=== PATIENT | male | born 1950 | race Caucasian/White ===

== ENCOUNTER 2017-03-12 16:40 | Inpatient (IN) | payer OTHER ==
[~2017-03-12] VITALS: Ht 165.1 cm; Wt 73.0 kg
--- NOTE | 2017-03-12 16:50 | NUR ---
DR HODGE AT THE BEDSIDE FOR EVAL AND EXAM.
[2017-03-12] MEDS ORDERED: AZTREONAM 2 G in IV NORMAL SALINE 100 ML IV ONE (17:00)
[2017-03-12] MEDS ORDERED: CLINDAMYCIN PHOSPHATE IV 600 MG in IV DEXTROSE 5% 100 ML IV ONE (17:00)
[2017-03-12] MEDS ORDERED: CEFTRIAXONE 1 G in IV DEXTROSE 5% 50 ML IV ONE (17:00)
[2017-03-12] MEDS ORDERED: IV NORMAL SALINE 1000 ML BAG IV ONE (17:00)
[2017-03-12] MEDS ORDERED: HYDR-3326 GT (17:01)
[2017-03-12] MEDS ORDERED: DOCU100C36 GT (17:01)
[2017-03-12] MEDS ORDERED: LEVO500T2 GT (17:01)
[2017-03-12] MEDS ORDERED: LEVE500T9 GT (17:01)
[2017-03-12] MEDS ORDERED: GABA-534 GT (17:01)
[2017-03-12] MEDS ORDERED: ALBU2.5V38 NEB (17:01)
[2017-03-12] MEDS ORDERED: LEVA1.2528 NEB (17:01)
[2017-03-12] MEDS ORDERED: MULT1TAB11 GT (17:01)
[2017-03-12] MEDS ORDERED: ONDA4TAB5 GT (17:01)
[2017-03-12] MEDS ORDERED: ACET-2154 GT (17:01)
[2017-03-12] MEDS ORDERED: OMEP20TA5 GT (17:01)
[2017-03-12] MEDS ORDERED: CALC-20 GT (17:01)
--- NOTE | 2017-03-12 17:20 | NUR ---
DR HODGE PLCED TRIPLE LUMEN CENTRAL LINE IN RT FEMORAL, PT TOLORATED WELL.
[2017-03-12 17:36] LABS: BASOPHILS # (AUTO) 0.2 K/uL (0.0-8.0); BASOPHILS % (AUTO) 1.7 % (0.0-2.0); EOSINOPHILS # (AUTO) 0.3 K/uL (0.0-0.7); EOSINOPHILS % (AUTO) 2.4 % (0.0-7.0); HEMATOCRIT 32.1 % (40-50); HEMOGLOBIN 10.7 G/DL (14.0-18.0); LYMPHOCYTES # (AUTO) 1.1 K/UL (0.8-4.8); LYMPHOCYTES % (AUTO) 10.1 % (20.5-51.5); MEAN CORPUSCULAR HEMOGLOBIN 30.9 UUG (27.0-31.0); MEAN CORPUSCULAR HGB CONC 33 g/dL (32.0-37.0); MEAN CORPUSCULAR VOLUME 93.1 FL (82.0-92.0); MONOCYTES % (AUTO) 9.4 % (0.0-11.0); NEUTROPHILS # (AUTO) 8.1 K/UL (1.8-8.9); NEUTROPHILS % (AUTO) 76.4 % (38.5-71.5); PLATELET COUNT (AUTO) 413 K/UL (150-450); RED BLOOD CELL COUNT(AUTO) 3.45 MIL/UL (4.7-6.1); WHITE BLOOD COUNT (AUTO) 10.7 K/UL (4.0-11.2)
[2017-03-12 17:41] LABS: CARBON DIOXIDE 29 mmol/L (21-32); CHLORIDE 91 mmol/L (98-107); CREATININE 0.5 mg/dL (0.6-1.3); GLUCOSE 92 mg/dL (74-106); POTASSIUM 4.3 mmol/L (3.5-5.1); UREA NITROGEN, BLOOD 13 mg/dL (7-18)
[2017-03-12 17:47] LABS: ALANINE AMINOTRANSFERASE 52 U/L (16-63); ALKALINE PHOSPHATASE 288 U/L (50-136); ASPARTATE AMINOTRANSFERASE 72 U/L (15-37); BILIRUBIN,DIRECT 0.3 mg/dL (0.0-0.2); BILIRUBIN,TOTAL 0.5 mg/dL (0.2-1.0); TOTAL PROTEIN, SERUM 6.6 g/dL (6.4-8.2)
[2017-03-12 17:48] LABS: *BILIRUBIN,URIN NEGATIVE (NEGATIVE); *BLOOD, URINE Trace-intact (NEGATIVE); *CLARITY,URINE SLIGHTLY CLOUDY (CLEAR); *COLOR,URINE YELLOW (YELLOW); *KETONES,URINE NEGATIVE (NEGATIVE); *PROTEIN,URINE 1+ (NEGATIVE); *UROBILINOGEN,URINE 0.2 E.U./dl (NORMAL); LEUKOCYTE ESTERASE ,URINE 1+ (NEGATIVE); NITRITE, URINE NEGATIVE (NEGATIVE); PH,URINE 7.5 (5.0-8.0); UGLUCOSE NEGATIVE (NEGATIVE)
[2017-03-12] MEDS ORDERED: CEFTRIAXONE 1 G VIAL ONE (17:53)
[2017-03-12] MEDS ORDERED: CLINDAMYCIN PHOSPHATE 600 MG/4 ML VIAL ONE (17:53)
[2017-03-12 18:04] LABS: WBC,URINE 50-80 /HPF (0-3)
[2017-03-12 18:05] LABS: BACTERIA,URINE FEW /HPF (NONE SEEN)
--- NOTE | 2017-03-12 18:14 | NUR ---
MRSA COLLECTED AND SENT TO LAB, BELONGING LIST COMPLTED.
--- NOTE | 2017-03-12 18:16 | NUR ---
DR WHTIE PAGED FOR ADMIT, AWAITING CALL BACK.
[2017-03-12] MEDS ORDERED: AZTREONAM 1 G VIAL ONE (18:17)
--- NOTE | 2017-03-12 19:15 | NUR ---
Pt is noted resting in bed as report is received from the off going nurse that , pt came from [facility] with c/o RLL Pneumonia and UTI , history off G-TUBE, HTN, GERD, QUADRIPLEGIA, NEUROFIBROMATOASIS and an open area to coccyx. He is on 02 2liter Nasal Cannula, sue cath in place with IVF and Antibiotic therapy in progress while awaits to give report to 2nd floor as pt is been admitted to Tele under the care off . His care continue with Susinu Rhythm on the Tele monitor.
--- NOTE | 2017-03-12 20:16 | NUR ---
Pt remain alert, responsive and forgetful as report is given to the receiving nurse on the 2nd floor as he is going to Tele room 225. His care continue.
--- NOTE | 2017-03-12 20:33 | NUR ---
Pt is noted off the unit as he is been transfered up to the 2nd floor room 225 as he been admitted and remain stable.
[2017-03-12 20:45] VITALS: BP 136/53
--- NOTE | 2017-03-12 20:45 | NUR ---
RECEIVED FROM ER AN 86 YR OLD MALE WITH ADMITTING DIAGNOSIS PF RIGHT LOWER LOBE PNEUMONIA. aLERT BUT NON-VERBAL, SPEECH GARBLED. OXYGEN AT 2 L PULSE OX 95%, BILATERAL UPPER AND LOWER EXTREMITIES CONTRACTED. CULLEN CATHETER DRAINING YELLOW URINE. RIGHT FEMORAL TRIPLE CENTRAL LINE FLUSHED AND PATENT. 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 ON TELEMETRY PATIENT ON SINUS RHYTHM HR 105 WILL MONITOR PATIENT.
[2017-03-12] MEDS ORDERED: ALBUTEROL SULFATE 2.5 MG/3 ML NEBU NEB PRN (21:30)
[2017-03-12] MEDS ORDERED: ACETAMINOPHEN 325 MG TABLET GT PRN (21:30)
[2017-03-12] MEDS: CEFTRIAXONE 1 G in IV DEXTROSE 5% 50 ML IV SCH (21:30)
[2017-03-12] MEDS ORDERED: HYDROCODONE/APAP 5-325MG TABLET GT PRN (21:30)
[2017-03-12] MEDS ORDERED: ONDANSETRON HCL 4 MG TABLET GT PRN (21:30)
[2017-03-12] MEDS: IV NS 1000 ML 1,000 ML IV PRN (22:20)
[2017-03-13] VITALS: BP 139/60
[2017-03-13] MEDS ORDERED: ACETAMINOPHEN 650 MG/20.3 ML LIQUID UDC ONE (02:57)
[2017-03-13] MEDS: ACETAMINOPHEN 650 MG/20.3 ML LIQUID UDC GT PRN ×2 (03:10→12:55)
[2017-03-13 04:00] VITALS: BP 142/85
--- NOTE | 2017-03-13 06:05 | NUR ---
PATIENT HAD LARGE SOFT STOOL,KEEP CLEAN AND DRY, REPOSITIONING Q 2H,HOB ELEVATED,ASPIRATION AND SEIZURE PRECAUTIONS.PATIENT NOT IN ANY DISTRESS.
--- NOTE | 2017-03-13 06:30 | NUR ---
NUTREN TUBEFEEDINGS STARTED AT 0630 VIA GTUBE AT 50CC/HR. HOB UP AT ALL TIMES. TOLERATED TUBE FEEDINGS WELL.
[2017-03-13 06:42] LABS: BASOPHILS % (AUTO) 0.3 % (0.0-2.0); EOSINOPHILS # (AUTO) 0.1 K/uL (0.0-0.7); EOSINOPHILS % (AUTO) 1.4 % (0.0-7.0); HEMATOCRIT 31.6 % (40-50); HEMOGLOBIN 10.7 G/DL (14.0-18.0); LYMPHOCYTES # (AUTO) 0.7 K/UL (0.8-4.8); LYMPHOCYTES % (AUTO) 7.2 % (20.5-51.5); MEAN CORPUSCULAR HEMOGLOBIN 31.6 UUG (27.0-31.0); MEAN CORPUSCULAR HGB CONC 34 g/dL (32.0-37.0); MEAN CORPUSCULAR VOLUME 93.1 FL (82.0-92.0); MONOCYTES # (AUTO) 0.7 K/UL (0.1-1.30); NEUTROPHILS # (AUTO) 8.9 K/UL (1.8-8.9); NEUTROPHILS % (AUTO) 84.1 % (38.5-71.5); PLATELET COUNT (AUTO) 400 K/UL (150-450); RED BLOOD CELL COUNT(AUTO) 3.39 MIL/UL (4.7-6.1); WHITE BLOOD COUNT (AUTO) 10.4 K/UL (4.0-11.2)
[2017-03-13 06:45] LABS: IRON, SERUM 17 ug/dL (50-175)
[2017-03-13 06:51] LABS: ALANINE AMINOTRANSFERASE 39 U/L (16-63); ALKALINE PHOSPHATASE 227 U/L (50-136); ASPARTATE AMINOTRANSFERASE 33 U/L (15-37); BILIRUBIN,TOTAL 0.4 mg/dL (0.2-1.0); CARBON DIOXIDE 26 mmol/L (21-32); CHLORIDE 97 mmol/L (98-107); CHOLESTEROL 74 mg/dL (<200); CREATININE 0.5 mg/dL (0.6-1.3); GLUCOSE 112 mg/dL (74-106); HDL CHOLESTEROL 21 mg/dL (40-60); MAGNESIUM 2.2 mg/dL (1.8-2.4); PHOSPHOROUS 3.8 mg/dL (2.5-4.9); POTASSIUM 4.4 mmol/L (3.5-5.1); TOTAL PROTEIN, SERUM 6.6 g/dL (6.4-8.2); TRIGLYCERIDES 49 MG/DL (30-150); UREA NITROGEN, BLOOD 10 mg/dL (7-18)
[2017-03-13 07:06] LABS: THYROID STIMULATING HORMONE 0.326 mIU/mL (0.358-3.740)
[2017-03-13] MEDS ORDERED: [UNRECOGNIZED DRUG - OTHER] GT SCH (09:00)
[2017-03-13] MEDS ORDERED: CALCIUM CARBONATE GT SCH (09:00)
[2017-03-13] MEDS ORDERED: Medication Not On Formulary EA (Multivitamins W-Minerals (Multivitamin With Minerals) 1 GT SCH (09:00)
[2017-03-13] MEDS ORDERED: VITAMIN D3 GT SCH (09:00)
[2017-03-13] MEDS: CALCIUM CARB/VITAMIN D 250MG-125UNITS TABLET GT SCH (10:07)
[2017-03-13] MEDS: DOCUSATE SODIUM 100 MG CAPSULE PO SCH ×2 (10:07→16:52)
[2017-03-13] MEDS: GABAPENTIN 300 MG CAPSULE GT SCH ×3 (10:07→16:53)
[2017-03-13] MEDS: LEVETIRACETAM 500 MG TABLET GT SCH ×3 (10:07→16:52)
[2017-03-13] MEDS: PANTOPRAZOLE ORAL SUSPENSION 40 MG SUSPDR.PKT GT SCH (10:07)
[2017-03-13] MEDS: IV NS 1000 ML 1,000 ML IV PRN (10:36)
[2017-03-13 12:00] VITALS: BP 137/66
[2017-03-13] MEDS: MULTIVITS W-FE,OTHER MIN 15 ML UDC GT SCH (12:56)
--- NOTE | 2017-03-13 15:18 | NUR ---
WOUND CARE CONSULT: PT PRESENTS WITH STAGE 2 ULCERS TO SACRUM AND RT BUTTOCK, PRESENT ON ADMISSION. SCARRING NOTED TO LEFT BUTTOCK. PT HAS VERY LARGE SKIN TAG TO SACRAL AREA AND MULTIPLE SKIN TAGS TO BODY. SCARRING NOTED TO FEET ALSO. FIRST STEP MATTRESS ORDERED. ALL SKIN PROTECTION AND WOUND RECOMMENDATIONS DISCUSSED WITH NURSING STAFF. WILL SEE PRN. SERNA IN AGREEMENT WITH PLAN OF CARE. Addendum: 03/13/17 at 1520 by DANELLE OSEGUERA RN Amended: Links added.
[2017-03-13 15:29] VITALS: BP 103/60
--- NOTE | 2017-03-13 19:11 | NUR ---
PT. RESTING IN BED . REPOSITIONED Q 2 HRS. WOUND CONSULT AT BS THIS AFTERNOON. WOUND TX PERFORMED WITH HYDROGEL AND FOAM DRESSING. TUBE FEEDING AT 50 ML/HR AND TOLERATING WELL. NO ACUTE DISTRESS. SPOKE WITH SISTER PER PHONE TWICE THIS SHIFT REGARDING CARE PLAN.
--- NOTE | 2017-03-13 19:30 | NUR ---
RECEIVED IN BED, NO SOB NO CHEST PAIN, HOB, TOLERATE GTF FEEDING, NO N/V NO DIARRHEA, NO REDISUAL, R FEMORAL PICC LINE INTACT, CONT TO MONITOR.
[2017-03-13 20:00] VITALS: BP 126/70
[2017-03-13] MEDS: CEFTRIAXONE 1 G in IV DEXTROSE 5% 50 ML IV SCH (22:02)
[2017-03-14] MEDS: IV NS 1000 ML 1,000 ML IV PRN (03:09)
[2017-03-14 04:00] VITALS: BP 138/69
--- NOTE | 2017-03-14 04:00 | NUR ---
PATIENT SLEPT MOST OF THE NIGHT WITH EPISODE OF MOANING, GIVEN PAIN MEDS WITH HELP AFTER ONE HOUR, NO SOB NO CHEST PAIN, CULLEN CATH PATENT WITH YELLOW COLOR URINE IN MODERATE AMOUNT, TURN AND REPOSITION.
[2017-03-14] MEDS: PANTOPRAZOLE ORAL SUSPENSION 40 MG SUSPDR.PKT GT SCH (05:32)
[2017-03-14] MEDS: MULTIVITS W-FE,OTHER MIN 15 ML UDC GT SCH (09:00)
[2017-03-14] MEDS: CALCIUM CARB/VITAMIN D 250MG-125UNITS TABLET GT SCH (10:48)
[2017-03-14] MEDS: LEVETIRACETAM 500 MG TABLET GT SCH ×3 (10:48→18:42)
[2017-03-14] MEDS: GABAPENTIN 300 MG CAPSULE GT SCH ×3 (10:49→18:42)
[2017-03-14] MEDS: DOCUSATE SODIUM 100 MG CAPSULE PO SCH ×2 (10:49→18:43)
[2017-03-14 12:03] VITALS: BP 141/76
--- NOTE | 2017-03-14 15:31 | NUR ---
DAILY NOTE PLACED ON AIR MATTRESS ORDERED. JOAN GT FEEDS MIN RESIDUALS NOTED
[2017-03-14 16:39] VITALS: BP 145/70
--- NOTE | 2017-03-14 19:30 | NUR ---
RECEIVED PATIENT IN BED, HOB ELEVATED, TOLERATE GTF, NO NAUSEA NO VOMITTING, NO RESIDUAL NOTED, R FEMORAL CATH PATENT, TURN AND REPOSITION, EVERY TWO HOURS, CULLEN CATH PATENT, DRAINING WITH YELLOW URINE, REMAIN ON CONTACT ISOLATION MRSA NARES, CONT TO MONITOR.
[2017-03-14 21:00] VITALS: BP 127/73
[2017-03-14] MEDS: CEFTRIAXONE 1 G in IV DEXTROSE 5% 50 ML IV SCH (23:02)
[2017-03-15] MEDS ORDERED: MUPIROCIN 2% OINT 22 GM TUBE ONE (00:59)
[2017-03-15] MEDS: MUPIROCIN 2% OINT 22 GM TUBE NS SCH ×3 (02:45→20:40)
[2017-03-15 05:02] VITALS: BP 126/80
[2017-03-15] MEDS: PANTOPRAZOLE ORAL SUSPENSION 40 MG SUSPDR.PKT GT SCH (06:14)
--- NOTE | 2017-03-15 06:52 | NUR ---
PATIENT SLEEP ON AND OFF, NO SOB NO CHEST PAIN, NO COUGHING, NO CONGESTION NOTED, HOB ELEVATED, TOLERATE GTF NO RESIDUAL NOTED. HAS 2 LARGE BM, STOOL WAS SENT, L FEMORAL LINES PATENT, CONT TO MONITOR.
[2017-03-15 06:59] LABS: BASOPHILS % (AUTO) 0.2 % (0.0-2.0); EOSINOPHILS % (AUTO) 0.2 % (0.0-7.0); HEMATOCRIT 30.8 % (36.7-47.1); HEMOGLOBIN 10.9 g/dL (12.5-16.3); LYMPHOCYTES # (AUTO) 0.7 K/uL (20.0-40.0); LYMPHOCYTES % (AUTO) 5.5 % (20.5-51.5); MEAN CORPUSCULAR HEMOGLOBIN 32.1 uug (23.8-33.4); MEAN CORPUSCULAR HGB CONC 36 g/dL (32.5-36.3); MEAN CORPUSCULAR VOLUME 90.5 fL (73.0-96.2); MONOCYTES % (AUTO) 7.9 % (0.0-11.0); NEUTROPHILS # (AUTO) 10.4 K/uL (1.8-8.9); NEUTROPHILS % (AUTO) 86.2 % (38.5-71.5); PLATELET COUNT (AUTO) 466 K/uL (152-348); RED BLOOD CELL COUNT(AUTO) 3.41 MIL/uL (4.06-5.63); WHITE BLOOD COUNT (AUTO) 12.1 K/uL (3.6-10.2)
[2017-03-15 07:02] LABS: ALANINE AMINOTRANSFERASE 25 U/L (16-63); ALKALINE PHOSPHATASE 175 U/L (50-136); ASPARTATE AMINOTRANSFERASE 15 U/L (15-37); BILIRUBIN,TOTAL 0.3 mg/dL (0.2-1.0); CARBON DIOXIDE 27 mmol/L (21-32); CHLORIDE 91 mmol/L (98-107); CREATININE 0.5 mg/dL (0.6-1.3); GLUCOSE 135 mg/dL (74-106); MAGNESIUM 1.8 mg/dL (1.8-2.4); PHOSPHOROUS 3.3 mg/dL (2.5-4.9); POTASSIUM 4.2 mmol/L (3.5-5.1); TOTAL PROTEIN, SERUM 7.3 g/dL (6.4-8.2); UREA NITROGEN, BLOOD 11 mg/dL (7-18)
[2017-03-15] MEDS: LEVETIRACETAM 500 MG TABLET GT SCH ×3 (09:49→18:16)
[2017-03-15] MEDS: CALCIUM CARB/VITAMIN D 250MG-125UNITS TABLET GT SCH (09:49)
[2017-03-15] MEDS: GABAPENTIN 300 MG CAPSULE GT SCH ×3 (09:49→18:16)
[2017-03-15] MEDS: MULTIVITS W-FE,OTHER MIN 15 ML UDC GT SCH (09:49)
[2017-03-15] MEDS: DOCUSATE SODIUM 100 MG CAPSULE PO SCH ×2 (09:49→18:16)
[2017-03-15 11:14] VITALS: BP 156/83
[2017-03-15] MEDS: NUTREN 1.5 1000ML BAG GT PRN (12:41)
[2017-03-15 15:07] VITALS: BP 158/77
[2017-03-15] MEDS: IV NS 1000 ML 1,000 ML IV PRN (18:01)
--- NOTE | 2017-03-15 19:30 | NUR ---
RECEIVED PATIENT HOB ELEVATED, GTF TOLERATE WELL NO RESIDUAL NOTED, NO SOB NO CHEST PAIN NOTED, TURN AND REPOSITION EVERY TWO HOURS, CULLEN CATH PATENT, DRAINING WITH YELLOW COLOR URINE IN MODERATE AMOUNT. CONT TO MONITOR.
[2017-03-15 20:00] VITALS: BP 124/72
[2017-03-15] MEDS: ACETAMINOPHEN 650 MG/20.3 ML LIQUID UDC GT PRN (20:39)
[2017-03-15] MEDS: CEFTRIAXONE 1 G in IV DEXTROSE 5% 50 ML IV SCH (22:38)
--- NOTE | 2017-03-16 00:30 | NUR ---
PATIENT AWAKE, HOB ELEVATED, NO EPISODES OF VOMITING NOTED, NO RESIDUAL NOTED, UCLLEN CATH WAS CHANGED, TOLERATE WELL, SEND URINE SPECIMEN, PICC LINE DRESSING WAS CHANGED ALSO. RENDER ORAL CARE, TX CONT ON COCCYX, TURN AND REPOSITION, NO SOB NO CHEST PAIN NOTED, KEPT COMFORTABLE.
[2017-03-16 02:05] LABS: *BILIRUBIN,URIN NEGATIVE (NEGATIVE); *BLOOD, URINE 3+ (NEGATIVE); *CLARITY,URINE CLEAR (CLEAR); *COLOR,URINE YELLOW (YELLOW); *KETONES,URINE NEGATIVE (NEGATIVE); *PROTEIN,URINE NEGATIVE (NEGATIVE); *UROBILINOGEN,URINE 0.2 E.U./dl (NORMAL); LEUKOCYTE ESTERASE ,URINE 1+ (NEGATIVE); NITRITE, URINE NEGATIVE (NEGATIVE); UGLUCOSE NEGATIVE (NEGATIVE)
[2017-03-16 02:22] LABS: BACTERIA,URINE NONE SEEN /HPF (NONE SEEN); SQUAMOUS EPITHELIAL CELL,UR NONE SEEN /HPF (NONE SEEN)
[2017-03-16] MEDS: PANTOPRAZOLE ORAL SUSPENSION 40 MG SUSPDR.PKT GT SCH (06:07)
[2017-03-16 06:32] VITALS: BP 106/57
--- NOTE | 2017-03-16 07:02 | NUR ---
REMAIN IN CONTACT ISOLATION MRSA NARES, GOOD HANDWASHING OBSERVED, CULLEN CATH PATENT, DRAINING WITH YELLOW COLOR URINE IN MODERATE AMOUNT, NO EPISODE OF VOMITING NOTED, PICC LINE DRESSING INTACT, GTF TOLERATE WELL NO NV NO DIARRHEA NOTED, AFEBRILE CONT TO MONITOR, ENDORSE TO NEXT SHIFT.
[2017-03-16] MEDS: MULTIVITS W-FE,OTHER MIN 15 ML UDC GT SCH ×2 (10:26→22:20)
[2017-03-16] MEDS: GABAPENTIN 300 MG CAPSULE GT SCH ×3 (10:27→18:09)
[2017-03-16] MEDS: DOCUSATE SODIUM 100 MG CAPSULE PO SCH ×2 (10:27→18:09)
[2017-03-16] MEDS: LEVETIRACETAM 500 MG TABLET GT SCH ×3 (10:27→18:09)
[2017-03-16] MEDS: CALCIUM CARB/VITAMIN D 250MG-125UNITS TABLET GT SCH (10:27)
[2017-03-16] MEDS: MUPIROCIN 2% OINT 22 GM TUBE NS SCH ×2 (10:27→22:19)
[2017-03-16 11:07] VITALS: BP 130/68
[2017-03-16 15:13] VITALS: BP 136/78
--- NOTE | 2017-03-16 18:42 | NUR ---
18:42 PT REMAINS IN BED Q 2 HOURLY CONTINUED. NO BM. TF IN PROGRESS. SKIN CARE CONTINUES AND CULLEN IN PLACE. WILL CONTINUE TO MONITOR.
--- NOTE | 2017-03-16 19:30 | NUR ---
Received patient sleeping in bed, no s/s of distress. Call light within reach. Will continue to monitor.
[2017-03-16 20:12] VITALS: BP 130/65
[2017-03-16] MEDS: CEFTRIAXONE 1 G in IV DEXTROSE 5% 50 ML IV SCH (22:19)
[2017-03-17] MEDS: IV NS 1000 ML 1,000 ML IV PRN (00:26)
[2017-03-17 06:53] VITALS: BP 121/56
[2017-03-17] MEDS: PANTOPRAZOLE ORAL SUSPENSION 40 MG SUSPDR.PKT GT SCH (07:05)
[2017-03-17 07:19] LABS: BASOPHILS % (AUTO) 0.2 % (0.0-2.0); EOSINOPHILS # (AUTO) 0.2 K/uL (0.0-0.7); EOSINOPHILS % (AUTO) 1.4 % (0.0-7.0); HEMATOCRIT 32.8 % (40-50); HEMOGLOBIN 11.4 G/DL (14.0-18.0); LYMPHOCYTES # (AUTO) 0.9 K/UL (0.8-4.8); MEAN CORPUSCULAR HEMOGLOBIN 31.9 UUG (27.0-31.0); MEAN CORPUSCULAR HGB CONC 35 g/dL (32.0-37.0); MEAN CORPUSCULAR VOLUME 92.2 FL (82.0-92.0); MONOCYTES # (AUTO) 0.6 K/UL (0.1-1.30); MONOCYTES % (AUTO) 5.8 % (0.0-11.0); NEUTROPHILS # (AUTO) 9.2 K/UL (1.8-8.9); NEUTROPHILS % (AUTO) 84.6 % (38.5-71.5); PLATELET COUNT (AUTO) 506 K/UL (150-450); RED BLOOD CELL COUNT(AUTO) 3.56 MIL/UL (4.7-6.1); WHITE BLOOD COUNT (AUTO) 10.9 K/UL (4.0-11.2)
--- NOTE | 2017-03-17 07:30 | NUR ---
RECEIVED PATIENT IN BED, HOB ELEVATED, TOLERATE GTF, NO NAUSEA NO VOMITING, NO RESIDUAL NOTED, R FEMORAL CATH PATENT, TURN AND REPOSITION, EVERY TWO HOURS, CULLEN CATH PATENT, DRAINING WITH YELLOW URINE, REMAIN ON CONTACT ISOLATION MRSA NARES,
--- NOTE | 2017-03-17 07:44 | NUR ---
Patient asleep with no s/s of acute distress. No complaints of pain at this time. Frequent checks done. Call light kept within reach. Kept clean and comfortable. Due meds given. Needs attended. Endorsed accordingly.
[2017-03-17] MEDS: NUTREN 1.5 1000ML BAG GT PRN (07:51)
[2017-03-17] MEDS: DOCUSATE SODIUM 100 MG CAPSULE PO SCH ×2 (08:00→16:24)
[2017-03-17] MEDS: GABAPENTIN 300 MG CAPSULE GT SCH ×3 (08:01→16:24)
[2017-03-17] MEDS: MUPIROCIN 2% OINT 22 GM TUBE NS SCH (08:01)
[2017-03-17] MEDS: LEVETIRACETAM 500 MG TABLET GT SCH ×3 (08:01→16:24)
[2017-03-17] MEDS: CALCIUM CARB/VITAMIN D 250MG-125UNITS TABLET GT SCH (08:01)
[2017-03-17] MEDS ORDERED: SODIUM CHLORIDE 1,000 MG TABLET PO SCH (09:00)
[2017-03-17 09:28] LABS: CARBON DIOXIDE 24 mmol/L (21-32); CHLORIDE 96 mmol/L (98-107); CREATININE 0.6 mg/dL (0.6-1.3); GLUCOSE 140 mg/dL (74-106); MAGNESIUM 2.1 mg/dL (1.8-2.4); PHOSPHOROUS 3.1 mg/dL (2.5-4.9); POTASSIUM 4.4 mmol/L (3.5-5.1); UREA NITROGEN, BLOOD 15 mg/dL (7-18)
[2017-03-17] MEDS ORDERED: ACIDOPHILUS/BULGARICUS CHEW TAB GT SCH (09:30)
[2017-03-17 12:05] VITALS: BP 115/73
[2017-03-17 13:11] LABS: LYMPHOCYTES % (MANUAL) 8 % (20-40); MONOCYTES % (MANUAL) 7 % (2-10); NEUTROPHILS % (MANUAL) 85 % (42-75)
[2017-03-17] MEDS ORDERED: MUPI22OI2 NS (14:59)
[2017-03-17] MEDS ORDERED: SODI100010 PO (14:59)
[2017-03-17] MEDS ORDERED: LEVO500T2 GT (14:59)
[2017-03-17 16:05] VITALS: BP 141/65
--- NOTE | 2017-03-17 17:00 | NUR ---
PATIENT SLEPT MOST OF THE NIGHT WITH EPISODE OF MOANING, NO SOB NO CHEST PAIN, CULLEN CATH PATENT WITH YELLOW COLOR URINE IN MODERATE AMOUNT, TURN AND REPOSITION.
--- NOTE | 2017-03-17 18:04 | NUR ---
D/C ORDERS RECEIVED NOTED AND CARRIED OUT.D/C PICC LINE PER MD ORDERS.RN REPORT GIVEN TO THE RN OVER PENITENTI[facility],PT LEFT THE FACILITY VIA AMBULANCES IN STABLE CONDITION.
== END 2017-03-17 17:00 | DRG 720 ==
LOC: ER 16:40 → TELE 20:28 → MED 03-13 13:37
PROVIDERS: ADMIT Internal Medicine; ATTEND Internal Medicine
DX: A41.9 Sepsis, unspecified organism (principal); J69.0 Pneumonitis due to inhalation of food and vomit; G93.40 Encephalopathy, unspecified; L89.153 Pressure ulcer of sacral region, stage 3; E22.2 Syndrome of inappropriate secretion of antidiuretic hormone; D68.59 Other primary thrombophilia; F03.90 Unspecified dementia, unspecified severity, without behavioral disturbance, psychotic disturbance, mood disturbance, and anxiety; Q85.00 Neurofibromatosis, unspecified; R13.10 Dysphagia, unspecified; N39.0 Urinary tract infection, site not specified; K21.9 Gastro-esophageal reflux disease without esophagitis; M81.0 Age-related osteoporosis without current pathological fracture; G40.909 Epilepsy, unspecified, not intractable, without status epilepticus; Z93.1 Gastrostomy status; I10 Essential (primary) hypertension; Z22.322 Carrier or suspected carrier of Methicillin resistant Staphylococcus aureus; Z79.899 Other long term (current) drug therapy
CPT/HCPCS: 36415; 70030-TC; 71010; 83550; 83605; 83735; 84100; 84443; 85025; 85730; 87040; 87086; 93005; A4663; C1751; J0696; J3490; J7030; J7050; J7060

== ENCOUNTER 2017-07-19 16:11 | Inpatient (IN) | payer OTHER ==
[~2017-07-19] VITALS: Ht 165.1 cm; Wt 73.0 kg
[~2017-07-19 16:11] MED LIST: ACET-2154 GT; ALBU2.5V38 NEB; CALC-20 GT; DOCU100C36 GT; GABA-534 GT; HYDR-3326 GT; LEVA1.2528 NEB; LEVE500T9 GT; LEVO500T2 GT; MULT1TAB11 GT; MUPI22OI2 NS; OMEP20TA5 GT; ONDA4TAB5 GT; SODI100010 PO
[2017-07-19] MEDS ORDERED: IV NORMAL SALINE 1000 ML BAG IV ONE (16:45)
[2017-07-19 17:12] LABS: BASOPHILS # (AUTO) 0.1 K/uL (0.0-8.0); BASOPHILS % (AUTO) 0.5 % (0.0-2.0); EOSINOPHILS % (AUTO) 0.3 % (0.0-7.0); HEMATOCRIT 29.9 % (36.7-47.1); HEMOGLOBIN 10.2 g/dL (12.5-16.3); LYMPHOCYTES % (AUTO) 6.9 % (20.5-51.5); MEAN CORPUSCULAR HEMOGLOBIN 31.1 uug (23.8-33.4); MEAN CORPUSCULAR HGB CONC 34 g/dL (32.5-36.3); MEAN CORPUSCULAR VOLUME 91.6 fL (73.0-96.2); MONOCYTES # (AUTO) 1.7 K/uL (2.0-10.0); MONOCYTES % (AUTO) 12.4 % (0.0-11.0); NEUTROPHILS # (AUTO) 11.2 K/uL (1.8-8.9); NEUTROPHILS % (AUTO) 79.9 % (38.5-71.5); PLATELET COUNT (AUTO) 472 K/uL (152-348); RED BLOOD CELL COUNT(AUTO) 3.27 MIL/uL (4.06-5.63)
[2017-07-19 17:15] LABS: CARBON DIOXIDE 26 mmol/L (21-32); CHLORIDE 90 mmol/L (98-107); CREATININE 0.6 mg/dL (0.6-1.3); GLUCOSE 126 mg/dL (74-106); POTASSIUM 4.1 mmol/L (3.5-5.1); UREA NITROGEN, BLOOD 20 mg/dL (7-18)
[2017-07-19 17:20] LABS: ALANINE AMINOTRANSFERASE 33 U/L (16-63); ALKALINE PHOSPHATASE 181 U/L (50-136); ASPARTATE AMINOTRANSFERASE 24 U/L (15-37); BILIRUBIN,DIRECT 0.3 mg/dL (0.0-0.2); BILIRUBIN,TOTAL 0.5 mg/dL (0.2-1.0); TOTAL PROTEIN, SERUM 6.9 g/dL (6.4-8.2)
[2017-07-19] MEDS ORDERED: CEFTRIAXONE 1 G in IV DEXTROSE 5% 50 ML IV ONE (18:00)
[2017-07-19 18:18] LABS: *BILIRUBIN,URIN NEGATIVE (NEGATIVE); *BLOOD, URINE 1+ (NEGATIVE); *CLARITY,URINE CLOUDY (CLEAR); *COLOR,URINE YELLOW (YELLOW); *KETONES,URINE NEGATIVE (NEGATIVE); *PROTEIN,URINE 2+ (NEGATIVE); LEUKOCYTE ESTERASE ,URINE 3+ (NEGATIVE); NITRITE, URINE NEGATIVE (NEGATIVE); UGLUCOSE NEGATIVE (NEGATIVE)
[2017-07-19] MEDS ORDERED: CEFTRIAXONE 1 G VIAL ONE (18:18)
[2017-07-19 18:19] LABS: BACTERIA,URINE MANY /HPF (NONE SEEN); WBC,URINE TNTC /HPF (0-3)
--- NOTE | 2017-07-19 19:16 | NUR ---
HANDS OFF REPORT GIVEN TO KAMERON HINTON.
--- NOTE | 2017-07-19 19:30 | NUR ---
report received from Cherelle HINTON. introduced self to pt. pt is nonverbal, responds to tactile stimuli. pt in no acute distress. respirations and even and unlabored. no sob noted, and no respiratory distress noted. bed in lowest position.
--- NOTE | 2017-07-19 19:53 | NUR ---
report given to inpt nurse Epi RN in tele. pt vs wnl prior to transport. pt in no acute distress.
[2017-07-19 20:15] VITALS: BP 105/52
[2017-07-19] MEDS ORDERED: ACETAMINOPHEN 325 MG TABLET GT PRN (20:15)
[2017-07-19] MEDS ORDERED: ONDANSETRON HCL 4 MG TABLET GT PRN (20:15)
[2017-07-19] MEDS: DOCUSATE SODIUM 100 MG/10 ML LIQUID UDC GT SCH (21:43)
[2017-07-19] MEDS: IV NS 1000 ML 1,000 ML IV PRN (21:43)
[2017-07-19] MEDS: ENOXAPARIN SODIUM 40 MG/0.4 ML DISP.SYRIN SQ SCH (21:44)
[2017-07-19] MEDS: Z GUARD REMEDY PASTE 57 GM TUBE TOP PRN (21:58)
[2017-07-19] MEDS: ACETAMINOPHEN 650 MG/20.3 ML LIQUID UDC GT PRN (21:59)
--- NOTE | 2017-07-19 23:30 | NUR ---
In from ER via [facility], 66 y/o male patient admitted initially to Telemetry Dx. UTI, then transferred to [facility] per MD order. Patient awake but confused, moaning on & off. O2 2L/NC in use, no SOB w/ vital signs stable. Contracted extremities noted w/ clamped G-tube intact. Left hand IV line patent. Admission assessment initiated. Sacral & buttocks wound wound noted, see pictures in chart. Wound consult was ordered. IVF NS at 75 ml/hr started as ordered. Will continue to monitor.
[2017-07-20] MEDS: HYDROCODONE/APAP 5-325MG TABLET GT PRN ×4 (00:16→22:41)
[2017-07-20 04:00] VITALS: BP 134/68
[2017-07-20 06:55] LABS: BASOPHILS # (AUTO) 0.1 K/uL (0.0-8.0); BASOPHILS % (AUTO) 0.7 % (0.0-2.0); EOSINOPHILS # (AUTO) 0.1 K/uL (0.0-0.7); EOSINOPHILS % (AUTO) 0.7 % (0.0-7.0); HEMATOCRIT 30.1 % (36.7-47.1); HEMOGLOBIN 10.2 g/dL (12.5-16.3); LYMPHOCYTES % (AUTO) 8.5 % (20.5-51.5); MEAN CORPUSCULAR HEMOGLOBIN 31.2 uug (23.8-33.4); MEAN CORPUSCULAR HGB CONC 34 g/dL (32.5-36.3); MONOCYTES # (AUTO) 1.2 K/uL (2.0-10.0); MONOCYTES % (AUTO) 10.5 % (0.0-11.0); NEUTROPHILS % (AUTO) 79.6 % (38.5-71.5); PLATELET COUNT (AUTO) 498 K/uL (152-348); RED BLOOD CELL COUNT(AUTO) 3.27 MIL/uL (4.06-5.63); WHITE BLOOD COUNT (AUTO) 11.3 K/uL (3.6-10.2)
--- NOTE | 2017-07-20 06:56 | NUR ---
Medicated for pain PRN, kept patient comfortable. Incontinence care provided. G-tube remains clamped. Patient was on Nutren 1.5 marie continuos feeding at 50 ml/hr from previous record. Called Dr. Bansal for clarification of feeding order. Patient resting comfortably at this time.
--- NOTE | 2017-07-20 07:00 | NUR ---
received report from cook night nurse, patient in bed asleep, no evidence of distress noted at this time. IV has some resistance with flushing, will continue to monitor. bed in low position, side rials up x2, bed in low position.
[2017-07-20 07:14] LABS: CARBON DIOXIDE 23 mmol/L (21-32); CHLORIDE 94 mmol/L (98-107); CHOLESTEROL 59 mg/dL (<200); CREATININE 0.6 mg/dL (0.6-1.3); GLUCOSE 101 mg/dL (74-106); HDL CHOLESTEROL 15 mg/dL (40-60); MAGNESIUM 2.1 mg/dL (1.8-2.4); PHOSPHOROUS 3.7 mg/dL (2.5-4.9); POTASSIUM 4.3 mmol/L (3.5-5.1); TRIGLYCERIDES 52 MG/DL (30-150); UREA NITROGEN, BLOOD 19 mg/dL (7-18)
[2017-07-20] MEDS ORDERED: NUTREN 1.5 1000ML BAG GT PRN (07:15)
[2017-07-20] MEDS ORDERED: LEVETIRACETAM 500 MG TABLET GT SCH (09:00)
[2017-07-20] MEDS ORDERED: DOCUSATE SODIUM 100 MG CAPSULE PO SCH (09:00)
[2017-07-20] MEDS: PANTOPRAZOLE SODIUM 40 MG VIAL IV SCH (09:01)
[2017-07-20] MEDS: LEVETIRACETAM 500 MG/5 ML LIQUID UDC GT SCH ×3 (09:01→17:48)
[2017-07-20] MEDS: DOCUSATE SODIUM 100 MG/10 ML LIQUID UDC GT SCH ×2 (09:01→20:23)
[2017-07-20] MEDS: GABAPENTIN 300 MG CAPSULE GT SCH ×3 (09:01→17:48)
[2017-07-20 11:46] VITALS: BP 130/74
[2017-07-20] MEDS: NUTREN 1.5 1000ML BAG GT PRN (12:57)
--- NOTE | 2017-07-20 14:00 | NUR ---
Patient seen by MATH AND SCIENCES DEPARTMENT CHAIR, wound care orders for buttocks entered, and xray for foot ordered, suspected cellulitis.
[2017-07-20 15:57] VITALS: BP 143/85
[2017-07-20] MEDS: CEFTRIAXONE 1 G in IV DEXTROSE 5% 50 ML IV SCH (17:49)
--- NOTE | 2017-07-20 18:55 | NUR ---
Patient has been cooperative with care, all needs met. New IV started on right forearm, patent and intact. no evidence of distress noted at this time, bed in low position, side rails up x2.
[2017-07-20] MEDS: ACETAMINOPHEN 650 MG/20.3 ML LIQUID UDC GT PRN (20:23)
[2017-07-20] MEDS: ENOXAPARIN SODIUM 40 MG/0.4 ML DISP.SYRIN SQ SCH (20:25)
[2017-07-20] MEDS: Z GUARD REMEDY PASTE 57 GM TUBE TOP PRN (20:34)
[2017-07-20 20:47] VITALS: BP 116/67
--- NOTE | 2017-07-20 21:00 | NUR ---
Patient awake resting comfortably but sensitive to touch. 1st step airloss mattress in use. G-tube in place Nutren 1.5 continuos feeding tolerating well. No residual noted. IVF infusing well, right forearm IV site patent no signs of infiltrations. Vital signs WNL. Turned & repositioned. Kept comfortable.
[2017-07-20] MEDS: IV NS 1000 ML 1,000 ML IV PRN (21:02)
--- NOTE | 2017-07-20 23:52 | NUR ---
Moaning on & off w/ frequent facial grimace noted. Sage 1 tab adm via GT, effective result noted. Quiet at this time, no signs of distress.
[2017-07-21 04:00] VITALS: BP 100/63
[2017-07-21] MEDS: LEVETIRACETAM 500 MG/5 ML LIQUID UDC GT SCH ×3 (08:49→18:13)
[2017-07-21] MEDS: DOCUSATE SODIUM 100 MG/10 ML LIQUID UDC GT SCH ×2 (08:49→20:31)
[2017-07-21] MEDS: PANTOPRAZOLE SODIUM 40 MG VIAL IV SCH (08:49)
[2017-07-21] MEDS: GABAPENTIN 300 MG CAPSULE GT SCH ×3 (08:49→18:13)
[2017-07-21] MEDS: ACETAMINOPHEN 650 MG/20.3 ML LIQUID UDC GT PRN ×2 (08:49→23:29)
[2017-07-21] MEDS: NUTREN 1.5 1000ML BAG GT PRN (08:50)
[2017-07-21] MEDS: IV NS 1000 ML 1,000 ML IV PRN (09:16)
[2017-07-21 11:41] VITALS: BP 112/61
--- NOTE | 2017-07-21 13:45 | NUR ---
Wound treatment done on buttocks as ordered. Patient tolerated procedure well.
--- NOTE | 2017-07-21 14:00 | NUR ---
Patient visited by brother/family. Patient seen by garland maker.
--- NOTE | 2017-07-21 15:00 | NUR ---
Microbiology report received, patient positive for MRSA nares. MD notified, new orders taken and carried out.
[2017-07-21 15:48] VITALS: BP 125/65
[2017-07-21] MEDS: HYDROCODONE/APAP 5-325MG TABLET GT PRN (17:16)
[2017-07-21] MEDS: CEFTRIAXONE 1 G in IV DEXTROSE 5% 50 ML IV SCH (17:16)
--- NOTE | 2017-07-21 18:30 | NUR ---
Patient non verbal, occasional moaning, in no distress. Patient is on GT feeding, tolerating feeding well, no nausea/vomiting/diarrhea noted. Aspiration precaution observed, HOB up at all times, oral care provided, suction as needed. GT patent/intact, flushed per protocol, bowel sounds present, 10cc residual noted. Patient is on air mattress, heels offloaded, repositioned for comfort, patient kept clean/dry. VS stable, patient is afebrile. Will endorse to oncoming shift RN and continue to monitor.
[2017-07-21 20:18] VITALS: BP 118/59
[2017-07-21] MEDS: MUPIROCIN 2% OINT 22 GM TUBE NS SCH (20:31)
[2017-07-21] MEDS: ENOXAPARIN SODIUM 40 MG/0.4 ML DISP.SYRIN SQ SCH (20:31)
[2017-07-22] MEDS: HYDROCODONE/APAP 5-325MG TABLET GT PRN ×2 (02:07→10:16)
[2017-07-22] MEDS: IV NS 1000 ML 1,000 ML IV PRN ×2 (06:02→13:19)
[2017-07-22 06:46] VITALS: BP 144/68
--- NOTE | 2017-07-22 07:56 | NUR ---
Awake, confused, non verbal, moaning, on moderate high back rest. O2 at 2L/NC. IVF infusing.
--- NOTE | 2017-07-22 10:00 | NUR ---
Moaning, PRN pain medications given. Resting after
[2017-07-22] MEDS: LEVETIRACETAM 500 MG/5 ML LIQUID UDC GT SCH ×3 (10:15→17:17)
[2017-07-22] MEDS: PANTOPRAZOLE SODIUM 40 MG VIAL IV SCH (10:15)
[2017-07-22] MEDS: DOCUSATE SODIUM 100 MG/10 ML LIQUID UDC GT SCH ×2 (10:15→21:06)
[2017-07-22] MEDS: GABAPENTIN 300 MG CAPSULE GT SCH ×3 (10:15→17:17)
[2017-07-22] MEDS: MUPIROCIN 2% OINT 22 GM TUBE NS SCH ×2 (10:16→21:06)
[2017-07-22] MEDS: NUTREN 1.5 1000ML BAG GT PRN (11:07)
[2017-07-22 11:25] VITALS: BP 166/75
[2017-07-22 12:14] VITALS: BP 135/71
--- NOTE | 2017-07-22 14:00 | NUR ---
Wound care done. Repositioned comfortably
[2017-07-22 15:37] VITALS: BP 124/62
[2017-07-22] MEDS: CEFTRIAXONE 1 G in IV DEXTROSE 5% 50 ML IV SCH (17:28)
[2017-07-22 20:00] VITALS: BP 125/77
[2017-07-22] MEDS: ENOXAPARIN SODIUM 40 MG/0.4 ML DISP.SYRIN SQ SCH (21:05)
[2017-07-22] MEDS: ACETAMINOPHEN 650 MG/20.3 ML LIQUID UDC GT PRN (21:07)
[2017-07-23] MEDS: HYDROCODONE/APAP 5-325MG TABLET GT PRN (00:57)
[2017-07-23] MEDS: IV NS 1000 ML 1,000 ML IV PRN ×2 (03:26→18:27)
[2017-07-23 06:48] VITALS: BP 139/92
--- NOTE | 2017-07-23 07:05 | NUR ---
PT IS RESTING IN BED AT THIS TIME. NO S/S OF DISTRESS. ALL NEEDS MET- BED BATH AND WOUND CARE PROVIDED. BED IN LOW, LOCKED POSITION. CALL LIGHT WITHIN REACH.
--- NOTE | 2017-07-23 07:56 | NUR ---
WOUND CARE CONSULT WOUND CARE RECEIVED CONSULT FOR SACRAL AND BUTTOCKS GROIN WOUNDS. WOUND CARE WILL DEFER CONSULT AND TREATMENT PLANS TO SURGICAL TEAM WHO ARE CURRENTLY FOLLOWING. PATIENT WITH CURRENT ARLET AT 11. ALL PRESSURE ULCER PREVENTION MEASURES CURRENTLY IN PLACE.
[2017-07-23 08:12] LABS: BASOPHILS % (AUTO) 0.5 % (0.0-2.0); EOSINOPHILS # (AUTO) 0.1 K/uL (0.0-0.7); EOSINOPHILS % (AUTO) 1.4 % (0.0-7.0); HEMATOCRIT 28.5 % (36.7-47.1); HEMOGLOBIN 9.7 g/dL (12.5-16.3); LYMPHOCYTES % (AUTO) 15.3 % (20.5-51.5); MEAN CORPUSCULAR HEMOGLOBIN 31.2 uug (23.8-33.4); MEAN CORPUSCULAR HGB CONC 34 g/dL (32.5-36.3); MEAN CORPUSCULAR VOLUME 91.8 fL (73.0-96.2); MONOCYTES # (AUTO) 0.8 K/uL (2.0-10.0); MONOCYTES % (AUTO) 12.5 % (0.0-11.0); NEUTROPHILS # (AUTO) 4.8 K/uL (1.8-8.9); NEUTROPHILS % (AUTO) 70.3 % (38.5-71.5); PLATELET COUNT (AUTO) 511 K/uL (152-348); WHITE BLOOD COUNT (AUTO) 6.8 K/uL (3.6-10.2)
[2017-07-23 08:13] LABS: CARBON DIOXIDE 28 mmol/L (21-32); CHLORIDE 95 mmol/L (98-107); CREATININE 0.5 mg/dL (0.6-1.3); GLUCOSE 122 mg/dL (74-106); POTASSIUM 3.7 mmol/L (3.5-5.1); UREA NITROGEN, BLOOD 9 mg/dL (7-18)
[2017-07-23] MEDS: GABAPENTIN 300 MG CAPSULE GT SCH ×3 (09:51→18:27)
[2017-07-23] MEDS: PANTOPRAZOLE ORAL SUSPENSION 40 MG SUSPDR.PKT GT SCH (09:51)
[2017-07-23] MEDS: DOCUSATE SODIUM 100 MG/10 ML LIQUID UDC GT SCH ×2 (09:51→21:11)
[2017-07-23] MEDS: LEVETIRACETAM 500 MG/5 ML LIQUID UDC GT SCH ×3 (09:51→18:27)
[2017-07-23] MEDS: MUPIROCIN 2% OINT 22 GM TUBE NS SCH ×2 (10:24→21:13)
[2017-07-23 11:29] VITALS: BP 149/56
[2017-07-23 15:50] VITALS: BP 131/66
[2017-07-23] MEDS: CEFTRIAXONE 1 G in IV DEXTROSE 5% 50 ML IV SCH (18:28)
--- NOTE | 2017-07-23 19:52 | NUR ---
WOUND CARE PROVIDED, FLUIDS CHANGED, G-TUBING RUNNING AND TOLERATING WELL. STABLE CONDITION, NO S/S OF DISTRESS, VITAL SIGNS HAVE BEEN STABLE. PATIENT AWAITING DISCHARGE BUT WAS PENDING ORTHO CONSULT BY DR. MORAN. DR. MORAN SAW PATIENT AND ASPIRATED SYNOVIAL FLUID FROM LEFT KNEE FOR SAMPLING. WRITTEN ORDERS IN CHART.
[2017-07-23 20:00] VITALS: BP 150/72
--- NOTE | 2017-07-23 20:00 | NUR ---
RECEIVED PATIENT ASLEEP IN BED BUT EASILY AROUSABLE. HE'S NON VERBAL AND UNABLE TO STATE HIS NEEDS. NO S/S OF PAIN OR DISTRESS NOTED. SAFETY MEASURES IN PLACE, WILL CONTINUE TO MONITOR PATIENT
--- NOTE | 2017-07-23 20:30 | NUR ---
CHECKED PLACEMENT ON G-TUBE, NO RESIDUE. G-TUBE PATENT AND INTACT-
[2017-07-23] MEDS: ACETAMINOPHEN 650 MG/20.3 ML LIQUID UDC GT PRN (21:11)
[2017-07-23] MEDS: ENOXAPARIN SODIUM 40 MG/0.4 ML DISP.SYRIN SQ SCH (21:14)
[2017-07-24 04:41] VITALS: BP 129/67
--- NOTE | 2017-07-24 06:33 | NUR ---
PATIENT SLEPT WELL THROUGH THE NIGHT, NO S/S OF PAIN OR DISTRESS NOTED. G-TUBE SITE CLEANSED AND CHANGED DRESSING, PATIENT COMFORTABLE.
--- NOTE | 2017-07-24 07:00 | NUR ---
RECEIVED PATIENT ON BED AWAKE, NO ACUTE DISTRESS NOTED. ON O2 2LPM VIA NASAL CANNULA, WELL TOLERATED. RESPIRATIONS EVEN AND UNLABORED. WITH MIDLINE ON THE LILIANA RUNNING NS @ 75 CC/HR. REDNESS ON THE SACRAL AND LEFT BUTTOCK OPENING, REPOSITIONED Q2 TO PREVENT FURTHER SKIN BREAKDOWN. GTUBE INTACT AND PATENT NO SIGNIFICANT RESIDUAL NOTED. ON NUTREN @ 60 CC/HR X 22 HRS TO BE TURNED ON AT 8AM. WILL CONTINUE TO MONITOR CLOSELY.
[2017-07-24] MEDS: LEVETIRACETAM 500 MG/5 ML LIQUID UDC GT SCH ×2 (08:16→12:37)
[2017-07-24] MEDS: DOCUSATE SODIUM 100 MG/10 ML LIQUID UDC GT SCH (08:17)
[2017-07-24] MEDS: PANTOPRAZOLE ORAL SUSPENSION 40 MG SUSPDR.PKT GT SCH (08:17)
[2017-07-24] MEDS: MUPIROCIN 2% OINT 22 GM TUBE NS SCH (08:17)
[2017-07-24] MEDS: GABAPENTIN 300 MG CAPSULE GT SCH ×2 (08:17→12:37)
[2017-07-24] MEDS: NUTREN 1.5 1000ML BAG GT PRN (08:20)
[2017-07-24] MEDS ORDERED: CEFT1VIA15 IV (10:42)
[2017-07-24 11:48] VITALS: BP 139/62
--- NOTE | 2017-07-24 14:43 | NUR ---
Patient discharged in stable condition, pictures of skin taken and placed in chart, report given to shan lee of [facility]. IV access on right forearm removed, well tolerated. Discharge papers and report given to emt. left hospital via ambulance.
== END 2017-07-24 14:55 | DRG 351 ==
LOC: ER 16:12 → TELE 19:59 → MED 23:30
PROC: 05H533Z Insertion of Infusion Device into Right Subclavian Vein, Percutaneous Approach (ICD-10-PCS; principal; 2017-07-20)
PROC: 0S9D3ZX Drainage of Left Knee Joint, Percutaneous Approach, Diagnostic (ICD-10-PCS; 2017-07-23)
DX: M17.12 Unilateral primary osteoarthritis, left knee (principal); L89.312 Pressure ulcer of right buttock, stage 2; G93.40 Encephalopathy, unspecified; R53.2 Functional quadriplegia; E22.2 Syndrome of inappropriate secretion of antidiuretic hormone; L03.114 Cellulitis of left upper limb; L03.115 Cellulitis of right lower limb; N39.0 Urinary tract infection, site not specified; R13.10 Dysphagia, unspecified; Q85.00 Neurofibromatosis, unspecified; I10 Essential (primary) hypertension; Z93.1 Gastrostomy status; B95.1 Streptococcus, group B, as the cause of diseases classified elsewhere; F79 Unspecified intellectual disabilities; G40.909 Epilepsy, unspecified, not intractable, without status epilepticus; Z16.30 Resistance to unspecified antimicrobial drugs; M80.052D Age-related osteoporosis with current pathological fracture, left femur, subsequent encounter for fracture with routine healing; Z79.899 Other long term (current) drug therapy; Z90.49 Acquired absence of other specified parts of digestive tract; M21.171 Varus deformity, not elsewhere classified, right ankle; Q66.7 Congenital pes cavus; R25.2 Cramp and spasm; M24.471 Recurrent dislocation, right ankle; K21.9 Gastro-esophageal reflux disease without esophagitis; I70.0 Atherosclerosis of aorta; Z74.01 Bed confinement status
CPT/HCPCS: 36415; 36569; 70030-TC; 71045; 73600; 73700; 83605; 83735; 83986; 84100; 84443; 85025; 85730; 87040; 87070; 87086; 87205; 87400; 89060; 93005; A4217; A4663; C1758; C9113; J0696; J1650; J7030; J7060